=== PATIENT | female | born 1950 | race Hispanic/Latino ===

== ENCOUNTER → 2018-04-10 | Outpatient (CLI) | payer OTHER ==
[~2018-04-10] MED LIST: AMLO10TA2 PO; ASPI-1197 PO; ASPI-555 PO; ATOR10 PO; FERS325 PO; INSLAN SQ; LISI-613 PO; METF10004 PO; SITA50TA PO; TYL3 PO
== END | disposition home or self-care (01) ==
LOC: RAH 08:25
PROVIDERS: ATTEND Family Medicine
DX: Z12.31 Encounter for screening mammogram for malignant neoplasm of breast (principal)
CPT/HCPCS: 77067

== ENCOUNTER → 2019-04-12 | Outpatient (CLI) | payer OTHER ==
[~2019-04-12] MED LIST changes: -AMLO10TA2 PO; +AMLO10TA7 PO; +ASPI-1012 PO; -ASPI-1197 PO; -ASPI-555 PO; +CALC600T12 PO; +CHOL20004 PO; -FERS325 PO; +HYDR-4457 PO; +METF-446 PO; -METF10004 PO; +MIRAUD PO; +PANT40TA25 PO; -SITA50TA PO; -TYL3 PO
== END | disposition home or self-care (01) ==
LOC: RAH 09:13
PROVIDERS: ATTEND Family Medicine
DX: Z12.31 Encounter for screening mammogram for malignant neoplasm of breast (principal)
CPT/HCPCS: 77067

== ENCOUNTER → 2020-04-26 | Outpatient (CLI) | payer OTHER ==
[~2020-04-26] MED LIST changes: -CALC600T12 PO; +CALC600T15 PO
== END | disposition home or self-care (01) ==
LOC: RAH 09:37
PROVIDERS: ATTEND Family Medicine
DX: Z12.31 Encounter for screening mammogram for malignant neoplasm of breast (principal)
CPT/HCPCS: 77067

== ENCOUNTER → 2021-05-02 | Outpatient (CLI) | payer OTHER ==
[~2021-05-02] MED LIST changes: +AMLO-258 PO; -AMLO10TA7 PO; +CALC-1125 PO; -CALC600T15 PO; -LISI-613 PO; +LISI20TA24 PO; -PANT40TA25 PO; +PANT40TA55 PO
== END | disposition home or self-care (01) ==
LOC: RAH 09:23
PROVIDERS: ATTEND Family Medicine
DX: Z12.31 Encounter for screening mammogram for malignant neoplasm of breast (principal)
CPT/HCPCS: 77067

== ENCOUNTER → 2024-12-03 | Outpatient (CLI) | payer OTHER ==
[~2024-12-03] MED LIST changes: -ASPI-1012 PO; +CEFU500T67 PO; -HYDR-4457 PO; -MIRAUD PO; +OMEP40CA21 PO; +ONDA-104 PO; -PANT40TA55 PO
--- NOTE | 2024-12-03 14:14 | HMCSR ---
APPROVED REPORT Laterality: Bilateral Indications PVD VELOCITY AND DOPPLER WAVEFORM ANALYSIS DINING ROOM CAPTAIN (R) 168.1cm/sec, Triphasic, DINING ROOM CAPTAIN (L) 171.0cm/sec, Triphasic, Prof Fem Art. (R) 90.3cm/sec, Biphasic, Prof Fem Art. (L) 90.3cm/sec, Biphasic, Fem Art Prox. (R) 121.6cm/sec, Biphasic, Fem Art Prox. (L) 116.9cm/sec, Triphasic, Fem Art Mid. (R) 114.6cm/sec, Biphasic, Fem Art Mid. (L) 146.3cm/sec, Biphasic, Fem Art Dist (R) 112.3cm/sec, Biphasic, Fem Art Dist. (L) 127.0cm/sec, Biphasic, Pop Art(AK) (R) 69.3cm/sec, Biphasic, Pop Art (AK) (L) 93.3cm/sec, Biphasic, Pop Art (Fossa)(R) 94.2cm/sec, Biphasic, Pop Art (Fossa) (L) 91.5cm/sec, Biphasic, Pop Art(BK) (R) 146.3cm/sec, Biphasic, Pop Art (BK) (L) 118.1cm/sec, Biphasic, TRAIN STARTER Prox. (R) 77.2cm/sec, Biphasic, TRAIN STARTER Prox. (L) 61.1cm/sec, Biphasic, TRAIN STARTER Mid. (R) 83.4cm/sec, Biphasic, TRAIN STARTER Mid. (L) 49.3cm/sec, Biphasic, TRAIN STARTER Dist. (R) 172.9cm/sec, Biphasic, TRAIN STARTER Dist. (L) 122.7cm/sec, Biphasic, Per Art Prox. (R) 53.8cm/sec, Biphasic, Per Art Prox. (L) 74.5cm/sec, Biphasic, Per Art Mid. (R) 49.0cm/sec, Biphasic, Per Art Mid. (L) 87.0cm/sec, Biphasic, Per Art Dist. (R) 44.2cm/sec, Biphasic, Per Art Dist. (L) 84.3cm/sec, Biphasic, FAVIAN Prox. (R) 101.4cm/sec, Biphasic, FAVIAN Prox. (L) 123.9cm/sec, Biphasic, FAVIAN Mid. (R) 93.3cm/sec, Biphasic FAVIAN Mid. (L) 96.1cm/sec, Biphasic, FAVIAN Dist. (R) 75.4cm/sec, Biphasic, FAVIAN Dist. (L) 101.9cm/sec, Biphasic, Technologist Impression Mild atherosclerosis throughout the bilateral lower extremities. No evidence of significant arterial insufficiency of bilateral lower extremities. Conclusion No evidence of significant arterial insufficiency of bilateral lower extremities. Conclusion No evidence of significant arterial insufficiency of bilateral lower extremities.
== END | disposition home or self-care (01) ==
LOC: SHCH 10:49
PROVIDERS: ATTEND Internal Medicine
DX: I73.9 Peripheral vascular disease, unspecified (principal); I70.90 Unspecified atherosclerosis
CPT/HCPCS: 93925

== ENCOUNTER → 2024-12-27 | Outpatient (CLI) | payer OTHER ==
--- NOTE | 2025-01-03 09:19 | HMCSR ---
APPROVED REPORT EXAM: Two-dimensional and M-mode echocardiogram with Doppler and color Doppler. INDICATION ICD: R00.2 Palpitations 2D Dimensions RVDd3.2 cmLVEF(%)68.8 (>50%)LVED Vol(simp.)54.0 mL IVSd0.9 (0.7-1.1cm)FS(%)38 %LVES Vol(simp.)19.0 mL LVDd4.0 (3.8-5.6cm)Ao Root(2D)3.0 (2.0-3.7cm)LVEF(%, simp.)64 % PWd0.9 (0.7-1.1cm)LVOT diam1.9 (1.8-2.4cm)LA ESV INDEX (BP)20.49 mL/m2 LVDs2.5 (2.5-4.0cm)IVC diam1.6 cm Aortic Valve AoV Vmax1.5 m/Augie Peak GR9.0 mmHgLVOT Vmax1.1 m/s AoV VTI0.3 mAo Mean GR4.[address] (VMAX)2.4 cm2AVA (VTI) 2.4 cm2 Mitral Valve MV E Vmax62.5 cm/sDECEL Wnew601 ms MV A Vmax98.5 cm/sP 1/2 T65 ms E/A ratio0.6MVA (PHT)3.4 cm2 TDI E/E' Medial9.8E/E' Lateral7.6 Pulmonary Valve PV Vmax1.1 m/sPV VTI0.19 mPV Mean GR3 mmHg PV Peak GR5.3 mmHgPI End Gogo. José Miguel 1.0 cm/s Tricuspid Valve TR Vmax2.4 m/sRAP (EST) 3 fgWnFPAI05.6 mmHg TR Peak GR23.6 mmHg Left Ventricle The left ventricle structure and function is normal. There is normal left ventricular wall thickness. LVEF is 60-65%. The left ventricular diastolic function is normal. Right Ventricle The right ventricle is normal size. The right ventricular systolic function is normal. Atria The left atrium size is normal. The right atrium size is normal. Aortic Valve Aortic valve is trileaflet. Aortic valve leaflets are sclerotic but open well. No aortic regurgitatio n is present. There is no aortic valvular stenosis. Mitral Valve The mitral valve is mildly thickened. There is no mitral valve regurgitation noted. There is no misael l valve stenosis. Tricuspid Valve The tricuspid valve leaflets appear normal. There is trace tricuspid regurgitation. Pulmonic Valve The pulmonic valve leaflets are thin and pliable; valve motion is normal. There is trace pulmonic concha vular regurgitation. Great Vessels The aortic root is normal in size. The IVC is normal in size and collapses >50% with inspiration. Pericardium No pericardial effusion. Other Information Quality : GoodRhythm : NSR Conclusion The left ventricle structure and function is normal. LVEF is 60-65%. The left ventricular diastolic function is normal. There is trace tricuspid regurgitation. There is trace pulmonic valvular regurgitation.
== END | disposition home or self-care (01) ==
LOC: SHCH 13:16
PROVIDERS: ATTEND Internal Medicine
DX: R00.2 Palpitations (principal)
CPT/HCPCS: 93306

== ENCOUNTER → 2025-05-23 | Outpatient (CLI) | payer OTHER ==
--- NOTE | 2025-05-25 09:29 | HMCIMG ---
DIGITAL BILATERAL SCREENING MAMMOGRAM Technique: The digital mammographic examination of both breasts in craniocaudal and mediolateral oblique views along with CAD was obtained. History: This is a 74 years year-old female 3, para3 Ab0. Patient has had right breast biopsy at 11:00 with hyalinized benign fibroadenoma which was performed in 2014.. Patient has no family history of breast cancer. Patient has no complaint Reference:Prior mammogram from 05/20/2024, 05/19/2023, 05/03/2022, 05/02/2021, 04/26/2020, 04/12/2019, 04/10/2018, and 04/07/2017 are available for comparison.. Breast composition: Breast composition C: The breasts are heterogeneously dense, which may obscure small masses. Finding: The digital mammographic examination of both breasts in craniocaudal and mediolateral oblique view along with CAD demonstrates both breasts to be moderately heterogeneously dense due to fibroglandular stromal elements.. There are macrocalcification with biopsy marker with the previous past report L hyalinized fibroadenoma. There is no evidence of any dendritic mass, cluster microcalcification or architectural distortion. The retromammary fat appears to be normal. IMPRESSION: Unchanged from prior study. NO RADIOGRAPHIC EVIDENCE OF MALIGNANT CHANGES. WE WOULD RECOMMEND ANNUAL FOLLOW UP WITH TOMOSYNTHESIS UNLESS OTHERWISE CLINICALLY INDICATED. FINAL ASSESSMENT: ACR: BI-RAD- 2. Benign: Also a negative assessment; finding(s) benign abnormalities. Management: Routine mammography screening. Likelihood of Cancer: Essentially 0% likelihood of malignancy. NOTE: IF A WORK-UP OF THIS PATIENT LEADS TO A BIOPSY, PLEASE FORWARD A COPY OF THE PATHOLOGY REPORT TO OUR OFFICE REQUIRED BY SA EFFECTIVE JULY 27, 1994. A NEGATIVE MAMMOGRAM SHOULD NOT PRECLUDE BIOPSY OF A CLINICALLY PALPABLE SUSPICIOUS MASS, 10% OF BREAST CANCERS ARE MAMMOGRAPHICALLY OCCULT. THIS MAMMOGRAPHY FACILITY IS FULLY ACCREDITED BY THE FOOD AND DRUG ADMINISTRATION (FDA). THANK YOU FOR THIS REFERRAL.
== END | disposition home or self-care (01) ==
LOC: RAH 10:14
PROVIDERS: ATTEND Family Medicine
DX: Z12.31 Encounter for screening mammogram for malignant neoplasm of breast (principal)
CPT/HCPCS: 77067